=== PATIENT | male | born 1990 | race Hispanic/Latino ===

== ENCOUNTER 2022-05-28 13:50 | Emergency (ER) | payer OTHER ==
[~2022-05-28 13:50] MED LIST: Iopamidol-370 76% 500 ML MDV (1 ML CHARGE) ONE
[2022-05-28] MEDS ORDERED: Ondansetron PF 4 MG/2 ML Vial ONE (14:30)
[2022-05-28] MEDS ORDERED: fentaNYL 50 mcg/mL 1 mL Vial ONE (14:41)
== END 2022-05-28 16:07 | disposition home or self-care (01) ==
LOC: ERS 13:50
DX: S16.1XXA Strain of muscle, fascia and tendon at neck level, initial encounter (principal); S40.012A Contusion of left shoulder, initial encounter; V89.2XXA Person injured in unspecified motor-vehicle accident, traffic, initial encounter
CPT/HCPCS: 70450; 71260; 72125; 74177; 96374; 96375; G0390; J2405; J3010; Q9967